=== PATIENT | male | born 1945 | race Asian ===

== ENCOUNTER 2018-01-21 18:50 | Inpatient (IN) | payer OTHER, MEDICAID ==
--- NOTE | 2018-01-21 19:08 | ED Physician Chart ---
ED Chief Complaint/HPI - Patient Information Date Seen:: 01/21/18 Time Seen:: 18:55 Chief Complaint:: Weakness History of Present Illness:: onset x 3 days of weakness and dizziness/vertigo; no report of trauma, H/As, S/T , neck pain, cough, C/P, SOB, Abd. Pain, A/N/V/D/C, fever, chills, or urinary s/ s Allergies:: Allergies Allergy/AdvReac Type Severity Reaction Status Date / Time acetaminophen Allergy Verified 01/21/18 18:57 [From Tylenol-Codeine #3] codeine Allergy Verified 01/21/18 18:57 [From Tylenol-Codeine #3] Vitals:: Vital Signs - 8 hr 01/21/18 18:57 Temp 97.1 F HR 106 RR 16 BP 147/82 O2 Sat % 97 Historian:: Patient, EMS Review:: Nurse's Note Reviewed, Old Chart Reviewed, EMS run form Reviewed ED Review of Systems - Review of Systems General/Constitutional: No fever, No chills, No weight loss, Weakness, No diaphoresis, No edema, No loss of appetite Skin: No skin lesions, No rash, No bruising Head: No headache, No light-headedness Eyes: No loss of vision, No pain, No diplopia ENT: No earache, No nasal drainage, No sore throat, No tinnitus Neck: No neck pain, No swelling, No thyromegaly, No stiffness, No mass noted Cardio Vascular: No chest pain, No palpitations, No PND, No orthopnea, No edema Pulmonary: No SOB, No cough, No sputum, No wheezing GI: No nausea, No vomiting, No diarrhea, No pain, No melena, No hematochezia, No constipation, No hematemesis G/U: No dysuria, No frequency, No hematuria, No nacturia Musculoskeletal: No bone or joint pain, No back pain, No muscle pain Endocrine: No polyuria, No polydipsia Psychiatric: No prior psych history, No depression, No anxiety, No suicidal ideation, No homicidal ideation, No auditory hallucination, No visual hallucination Hematopoietic: No bruising, No lymphadenopathy Allergic/Immuno: No urticaria, No angioedema Neurological: No syncope, No focal symptoms, Weakness, No paresthesia, No headache, No seizure, Dizziness, No confusion, Vertigo ED Past Medical History - Past Medical History Obtainable: Yes Past Medical History: HTN, DM, Dyslipidemia Family History: Diabetes Melitus, HTN Social History: Non Smoker, No Alcohol, No Drug Use, Single, Care Facility Surgical History: None Psychiatricy History: None Medication: Reviewed Family Medical History - Family Member Mother History Unknown: Yes ED Physical Exam - Physical Examination General/Constitutional: Awake, Well-developed, well-nourished, Alert, No distress, GCS 15, Non-toxic appearing, Ambulatory Head: Atraumatic Eyes: Lids, conjuctiva normal, PERRL, EOMI Skin: Nl inspection, No rash, No skin lesions, No ecchymosis, Well hydrated, No lymphadenopathy ENMT: External ears, nose nl, TM canals nl, Nasal exam nl, Lips, teeth, gums nl , Oropharynx nl, Tonsils nl Neck: Nontender, Full ROM w/o pain, No JVD, No nuchal rigidity, No bruit, No mass, No stridor Respiratory: Nl effort/Exclusion, Clear to Auscultation, No Wheeze/Rhonchi/Rales Cardio Vascular: RRR, No murmur, gallop, rubs, NL S1 S2, Carotid/Femoral/Distal pulses equal bilaterally GI: No tenderness/rebounding/guarding, No organomegaly, No hernia, Normal BS's, Nondistended, No mass/bruits, No McBurney tenderness : No CVA tenderness Extremities: No tenderness or effusion, Full ROM, normal strength in all extremities, No edema, Normal digits & nails Neuro/Psych: Alert/oriented, DTR's symmetric, Normal sensory exam, Normal motor strength, Judgement/insight normal, Mood normal, Normal gait, No focal deficits Misc: Normal back, No paraspinal tenderness ED Labs/Radiology/EKG Results - Lab Results Comments:: Glucose: 304 - Radiology Results Comments:: NAD - EKG Interpretations EKG Time:: 19:20 Rate & Rhythm: 103; ST Comments:: non=specific st-t changes ED Septic Shock - . Is Septic Shock (SBP<90, OR Lactate>4 mmol\L) present?: No - <6hrs of presentation: Vital Signs: Vital Signs - 8 hr 01/21/18 18:57 Temp 97.1 F HR 106 RR 16 BP 147/82 O2 Sat % 97 ED Reassessment (Disposition) - Reassessment Reassessment Condition:: Improved - Diagnosis Diagnosis:: Vertigo; Weakness; Dizziness; TIA; Cardiac Arrythmias; Hyperglycemia; HTN; DM; Tachycardia; Dehydration - Aftercare/Follow up Instructions Aftercare/Follow-Up Instructions:: Counseled pt regarding lab results/diagnosis & need follow up, Counseled pt & family regarding lab results/diagnosis & need follow up - Patient Disposition Discharge/Transfer:: Acute Care w/in this hosp Accepting Physician:: Dr. Washington Time Called:: 1944 Time Responded:: 19:45 Admitted to:: Telemetry Spoke to:: Dr. Washington Admitting Medical Physician:: Dr. Washington Condition at Disposition:: Stable, Improved
[2018-01-21 19:24] LABS: % BASOPHILS 0.1 % (0.0-2.0); % EOSINOPHILS 0.8 % (0.0-5.0); % LYMPHOCYTES 9.6 % (20.0-50.0); % MONOCYTES 5.6 % (2.0-10.0); % NEUTROPHILS 83.9 % (40.0-80.0); EOSINOPHILE ABSOLUTE 0.1 Th/cmm (0.1-0.4); HEMATOCRIT 37.6 % (41.0-60); HEMOGLOBIN 12.7 gm/dL (12-16); LYMPHOCYTE ABSOLUTE 0.9 Th/cmm (1.5-3.0); MEAN CELL VOLUME 82.3 fl (80-99); MEAN CORPUSCULAR HEMOGLOBIN 27.9 pg (27.0-31.0); MEAN CORPUSCULAR HGB CONC 33.9 pg (28.0-36.0); MEAN PLATELET VOLUME 8.5 fl; MONOCYTE ABSOLUTE 0.5 Th/cmm (0.3-1.0); NEUTROPHILE ABSOLUTE 7.4 Th/cmm (1.8-8.0); PLATELET COUNT 183 Th/cmm (150-400); RED BLOOD COUNT 4.56 Mil/cmm (3.80-5.80); RED CELL DISTRIBUTION WIDTH 12.8 % (11.5-20.0); WHITE BLOOD COUNT 8.9 Th/cmm (4.8-10.8)
[2018-01-21 19:39] LABS: ALB/GLOB RATIO 1.2 (1.0-1.8); ALBUMIN 3.1 gm/dL (4.2-5.5); ALKALINE PHOSPHATASE 69 U/L (34-104); ANION GAP 11.4 (7.0-16.0); BILIRUBIN,TOTAL 0.2 mg/dL (0.3-1.0); BUN - UREA NITROGEN 22 mg/dL (7-25); CALCIUM SERUM 9.2 mg/dL (8.6-10.3); CARBON DIOXIDE 28.7 mEq/L (21.0-31.0); CHLORIDE 103 mEq/L (98-107); CHOLESTEROL 286 mg/dL (<200); CREATININE - SERUM 1.2 mg/dL (0.7-1.3); CREATININE KINASE 65 U/L (30-223); GLUCOSE 304 mg/dL (70-105); HDL -HIGH DENSITY LIPOPROTEIN 42 mg/dL (23-92); POTASSIUM SERUM 4.1 mEq/L (3.5-5.1); SGOT 16 U/L (13-39); SGPT/ALT 19 U/L (7-52); SODIUM SERUM 139 mEq/L (136-145); TOTAL PROTEIN,SERUM 5.8 gm/dL (6.0-8.3); TRIGLYCERIDES 402 mg/dL (<150)
[2018-01-21 19:45] LABS: INR 0.95 (0.5-1.4); PROTHROMBIN TIME (TEST) 9.9 SECONDS (9.5-11.5)
[2018-01-21] MEDS ORDERED: Ipratropium Neb 0.5 mg/2.5 mL UD HHN PRN (23:17)
[2018-01-21] MEDS ORDERED: guaiFENesin 200 MG/10 ML UDC PO PRN (23:17)
[2018-01-21] MEDS ORDERED: Albuterol Nebulizer 2.5mg/3mL HHN PRN (23:17)
[2018-01-22] MEDS: Sodium Chloride 0.9% 1,000 ML IV SCH (00:19)
[2018-01-22 07:05] LABS: % BASOPHILS 0.4 % (0.0-2.0); % EOSINOPHILS 2.4 % (0.0-5.0); % LYMPHOCYTES 18.3 % (20.0-50.0); % MONOCYTES 9.2 % (2.0-10.0); % NEUTROPHILS 69.7 % (40.0-80.0); EOSINOPHILE ABSOLUTE 0.2 Th/cmm (0.1-0.4); HEMATOCRIT 39.5 % (41.0-60); HEMOGLOBIN 13.1 gm/dL (12-16); LYMPHOCYTE ABSOLUTE 1.5 Th/cmm (1.5-3.0); MEAN CELL VOLUME 83.2 fl (80-99); MEAN CORPUSCULAR HEMOGLOBIN 27.6 pg (27.0-31.0); MEAN CORPUSCULAR HGB CONC 33.2 pg (28.0-36.0); MEAN PLATELET VOLUME 9.1 fl; MONOCYTE ABSOLUTE 0.7 Th/cmm (0.3-1.0); NEUTROPHILE ABSOLUTE 5.7 Th/cmm (1.8-8.0); PLATELET COUNT 182 Th/cmm (150-400); RED BLOOD COUNT 4.75 Mil/cmm (3.80-5.80); RED CELL DISTRIBUTION WIDTH 12.9 % (11.5-20.0); WHITE BLOOD COUNT 8.1 Th/cmm (4.8-10.8)
[2018-01-22 07:26] LABS: ALB/GLOB RATIO 1.1 (1.0-1.8); ALKALINE PHOSPHATASE 49 U/L (34-104); ANION GAP 8.9 (7.0-16.0); BILIRUBIN,TOTAL 0.3 mg/dL (0.3-1.0); BUN - UREA NITROGEN 15 mg/dL (7-25); CALCIUM SERUM 8.8 mg/dL (8.6-10.3); CARBON DIOXIDE 31.4 mEq/L (21.0-31.0); CHLORIDE 104 mEq/L (98-107); CREATININE - SERUM 0.9 mg/dL (0.7-1.3); POTASSIUM SERUM 3.3 mEq/L (3.5-5.1); SGOT 15 U/L (13-39); SGPT/ALT 18 U/L (7-52); SODIUM SERUM 141 mEq/L (136-145); TOTAL PROTEIN,SERUM 5.7 gm/dL (6.0-8.3)
[2018-01-22] MEDS ORDERED: INSULIN HUMAN REGULAR 100 UNITS/ML UNIT SUBQ SCH (07:30)
[2018-01-22 07:33] LABS: GLUCOSE 187 mg/dL (70-105)
[2018-01-22] MEDS ORDERED: Non-Formulary Item 1 EA (Multivitamin [Multivitamins] 1 CAP) PO SCH (09:00)
[2018-01-22] MEDS: Multivitamin Tab PO SCH (09:12)
--- NOTE | 2018-01-22 10:45 | Diagnostic Imaging Report ---
Portable chest x-ray History: Pain Allowing for portable technique the heart size is normal. No focal pulmonary parenchymal processes. No hilar or mediastinal abnormalities. Impression: No acute abnormalities.
--- NOTE | 2018-01-22 10:46 | Diagnostic Imaging Report ---
CT scan of the brain without intravenous contrast HISTORY: Stroke, CVA Total DLP equals 774 CTDI equals 41.6 Axial sections were obtained from the base of the skull to the vertex. There is prominence/enlargement of the ventricular system size. Associated enlargement of cerebral sulci and subarachnoid cisterns. Findings are consistent with changes of generalized cerebral atrophy. No acute parenchymal abnormalities. No acute cerebral hemorrhage. Hypodensity is seen within the supratentorial white matter regions without mass effect. The findings may be associated with chronic small vessel ischemic disease. No extra-axial masses or abnormal fluid collections. Atherosclerotic calcification seen in the region of the vertebral and basilar arteries at the base of the skull. IMPRESSION: 1. No acute abnormalities 2. Cerebral atrophy 3. Supratentorial white matter changes that may reflect chronic small vessel ischemic disease 4. Atherosclerotic vascular changes
[2018-01-22] MEDS: INSULIN ASPART, RECOMBINANT 100 UNITS/ML SUBQ SCH ×3 (12:43→21:22)
--- NOTE | 2018-01-22 12:54 | Internal Medicine Prog Note ---
Internal Medicine Subjective - Subjective Service Date: 01/22/18 ([facility] [id number]) Internal Medicine Objective - Results Result Diagrams: 01/22/18 06:10 01/22/18 06:10 Recent Labs: Laboratory Last Values WBC 8.1 Th/cmm (4.8-10.8) 01/22/18 06:10 RBC 4.75 Mil/cmm (3.80-5.80) 01/22/18 06:10 Hgb 13.1 gm/dL (12-16) 01/22/18 06:10 Hct 39.5 % (41.0-60) L 01/22/18 06:10 MCV 83.2 fl (80-99) 01/22/18 06:10 MCH 27.6 pg (27.0-31.0) 01/22/18 06:10 MCHC Differential 33.2 pg (28.0-36.0) 01/22/18 06:10 RDW 12.9 % (11.5-20.0) 01/22/18 06:10 Plt Count 182 Th/cmm (150-400) 01/22/18 06:10 MPV 9.1 fl 01/22/18 06:10 Neutrophils % 69.7 % (40.0-80.0) 01/22/18 06:10 Lymphocytes % 18.3 % (20.0-50.0) L 01/22/18 06:10 Monocytes % 9.2 % (2.0-10.0) 01/22/18 06:10 Eosinophils % 2.4 % (0.0-5.0) 01/22/18 06:10 Basophils % 0.4 % (0.0-2.0) 01/22/18 06:10 PT 9.9 SECONDS (9.5-11.5) 01/21/18 19:15 INR 0.95 (0.5-1.4) 01/21/18 19:15 Sodium 141 mEq/L (136-145) 01/22/18 06:10 Potassium 3.3 mEq/L (3.5-5.1) L 01/22/18 06:10 Chloride 104 mEq/L (98-107) 01/22/18 06:10 Carbon Dioxide 31.4 mEq/L (21.0-31.0) H 01/22/18 06:10 Anion Gap 8.9 (7.0-16.0) 01/22/18 06:10 BUN 15 mg/dL (7-25) 01/22/18 06:10 Creatinine 0.9 mg/dL (0.7-1.3) 01/22/18 06:10 Est GFR ( Amer) TNP 01/22/18 06:10 Est GFR (Non-Af Amer) TNP 01/22/18 06:10 BUN/Creatinine Ratio 16.7 01/22/18 06:10 Glucose 187 mg/dL (70-105) H D 01/22/18 06:10 POC Glucose 227 MG/DL (70 - 105) H 01/22/18 12:16 Calcium 8.8 mg/dL (8.6-10.3) 01/22/18 06:10 Magnesium 2.0 mg/dL (1.9-2.7) 01/22/18 06:10 Total Bilirubin 0.3 mg/dL (0.3-1.0) 01/22/18 06:10 AST 15 U/L (13-39) 01/22/18 06:10 ALT 18 U/L (7-52) 01/22/18 06:10 Alkaline Phosphatase 49 U/L (34-104) 01/22/18 06:10 Creatine Kinase 65 U/L (30-223) 01/21/18 19:15 Troponin I < 0.01 ng/mL (0.01-0.05) L 01/21/18 19:15 B-Natriuretic Peptide 49.1 pg/mL (5.0-100.0) 01/21/18 19:15 Total Protein 5.7 gm/dL (6.0-8.3) L 01/22/18 06:10 Albumin 3.0 gm/dL (4.2-5.5) L 01/22/18 06:10 Globulin 2.7 gm/dL 01/22/18 06:10 Albumin/Globulin Ratio 1.1 (1.0-1.8) 01/22/18 06:10 Triglycerides 402 mg/dL (<150) H 01/21/18 19:15 Cholesterol 286 mg/dL (<200) H 01/21/18 19:15 LDL Cholesterol Direct 207 mg/dL (75-193) H 01/21/18 19:15 HDL Cholesterol 42 mg/dL (23-92) 01/21/18 19:15 TSH 1.03 uIU/ml (0.34-5.60) 01/22/18 06:10 - Physical Exam Vitals and I&O: Vital Signs Temp 98.3 F 01/22/18 11:40 Pulse 76 01/22/18 11:40 Resp 18 01/22/18 11:59 BP 118/68 01/22/18 11:40 Pulse Ox 98 01/22/18 11:40 Intake & Output 01/21/18 01/22/18 01/22/18 18:59 06:59 18:59 Weight (lbs) 142 lb 150 lb Other: # Voids 3 # Bowel Movements 0 Weight Source Standing scale Bedscale Active Medications: Current Medications Albuterol Sulfate (Albuterol 2.5mg/3ml Neb Ud) 2.5 mg HHN Q2HR PRN PRN Reason: Shortness of Breath or Wheeze Stop: 03/22/18 23:16 Amlodipine Besylate (Norvasc) 10 mg PO DAILY [facility] Stop: 03/23/18 08:59 Last Admin: 01/22/18 09:12 Dose: 10 mg Divalproex Sodium (Depakote Dr) 250 mg PO QAM [facility]; Protocol Stop: 03/23/18 08:59 Last Admin: 01/22/18 09:08 Dose: 250 mg Divalproex Sodium (Depakote Dr) 500 mg PO QPM [facility]; Protocol Stop: 03/23/18 16:59 Docusate Sodium (Colace) 100 mg PO BID [facility] Stop: 03/23/18 08:59 Last Admin: 01/22/18 09:08 Dose: 100 mg Glimepiride (Amaryl) 2 mg PO DAILY [facility] Stop: 03/23/18 08:59 Last Admin: 01/22/18 09:08 Dose: 2 mg Guaifenesin (Robitussin) 100 mg PO Q4H PRN PRN Reason: Cough or Congestion Stop: 03/22/18 23:16 Sodium Chloride (Nacl 0.9%) 1,000 mls @ 60 mls/hr IV .[id number] [facility] Stop: 03/22/18 23:29 Last Admin: 01/22/18 00:19 Dose: 60 mls/hr Insulin Aspart (Novolog) 0 units SUBQ ACHS [facility]; Protocol Stop: 03/23/18 07:29 Last Admin: 01/22/18 12:43 Dose: 4 units Ipratropium [place] (Atrovent Neb 0.5mg/2.5ml) 0.5 mg HHN Q2HR PRN PRN Reason: Shortness of Breath or Wheeze Stop: 03/22/18 23:16 Metformin HCl (Glucophage) 500 mg PO BID [facility] Stop: 03/23/18 08:59 Last Admin: 01/22/18 09:08 Dose: 500 mg Metoprolol Tartrate (Lopressor) 50 mg PO BID [facility] Stop: 03/23/18 08:59 Last Admin: 01/22/18 09:12 Dose: 50 mg Multivitamins/Vitamin C (Theragran) 1 tab PO DAILY [facility] Stop: 03/23/18 08:59 Last Admin: 01/22/18 09:12 Dose: 1 tab Ondansetron HCl (Zofran) 4 mg IV Q8H PRN PRN Reason: Nausea / Vomiting Stop: 03/22/18 23:16
--- NOTE | 2018-01-22 14:47 | History & Physical ---
ADMIT DATE: 01/22/2018 DICTATED FOR: Dr. Jose Maria Washington CHIEF COMPLAINT: Generalized weakness. HISTORY OF PRESENT ILLNESS: This is a 72-year-old male who is a skilled nursing resident, admitted to the med-surg unit due to 3-day history of weakness and dizziness. There is no reports of any fevers. For further management, the patient is now admitted to the med/surg unit. PAST MEDICAL HISTORY: Hypertension, diabetes, dyslipidemia. FAMILY HISTORY: Noncontributory. SOCIAL HISTORY: The patient is a skilled nursing resident, requiring 24-hour nursing care. PAST SURGICAL HISTORY: None per the patient. MEDICATIONS: Please see medication reconciliation sheet. REVIEW OF SYSTEMS: GENERAL: Denies any fever and chills. CARDIOVASCULAR: Denies chest pain. RESPIRATORY: Denies shortness of breath. GASTROINTESTINAL: Denies nausea, vomiting, abdominal pain. GENITOURINARY: Denies increased frequency, dysuria. NEUROLOGIC: No headaches, seizures or syncope. All other systems are reviewed and negative. PHYSICAL EXAMINATION: GENERAL: Elderly male, awake, alert, in no apparent distress. VITAL SIGNS: Temperature 98.3, heart rate 76, blood pressure 118/68, respiration 18, O2 98%. HEENT: Head normocephalic, atraumatic. NECK: Supple. No mass. LUNGS: Clear bilaterally. HEART: Regular rhythm. ABDOMEN: Soft, nontender. LABORATORY DATA: WBC 8.1, H and H 13.1 and 39.5, platelet of 182. Sodium 141, potassium 3.3, chloride 104, BUN 15, creatinine 0.9, glucose of 187. Albumin of 3.0. DIAGNOSTIC DATA: The patient had a CT of the head done, impression is no acute abnormality, cerebral atrophy, supratentorial white matter changes that may reflect chronic small vessel ischemic changes, atherosclerotic vascular changes. The patient also had a chest x-ray done, impression is no acute abnormalities. ASSESSMENT: Generalized weakness, mild protein-calorie malnutrition, hypertension, diabetes and dyslipidemia. PLAN: We will get the patient on IV fluids for hydration. Physical therapy evaluation. Monitor the patient's glucose, Accu-Chek a.c. and bedtime. We will also get psych on the case as well. We will continue to follow this patient. JOB# [id number]
[2018-01-22 17:48] LABS: A1C % 6.9 % (4.0-6.0)
[2018-01-22] MEDS ORDERED: Potassium Chloride 20 mEq ER Tab PO ONE (19:11)
--- NOTE | 2018-01-23 00:10 | Consultation ---
DATE OF CONSULTATION: 01/22/2018 PSYCHIATRIC CONSULTATION The patient was seen, chart reviewed, discussed with staff. HISTORY OF PRESENT ILLNESS: The patient is a 72-year-old male with multiple medical problems, was admitted to the hospital with generalized weakness and dizziness for the past 3 days, currently being hydrated. The patient has a history of encephalopathy and dementia. The patient was superficial throughout the interview. He was laughing inappropriately and have some episodes where he is talking to himself. PAST PSYCHIATRIC HISTORY: Dementia versus possible MR. PAST MEDICAL HISTORY: Seizure disorder, diabetes. PSYCHOSOCIAL HISTORY: The patient resides at [facility] and requires complete care. MENTAL STATUS EXAMINATION: The patient is in bed, made fair eye contact. Speech is minimal, short sentences, inappropriate laughter, responding to internal stimuli. Oriented to person, not oriented to time or place. Insight is poor. Judgment is limited. ASSESSMENT: At this time, would recommend continuation of medical supportive measures. Use a small dose of Ativan 0.5 mg q. 6 hours p.r.n. anxiety. Monitor for increased agitation or paranoia or any changes in his mental status. We will follow the patient closely. Thank you for the consultation . JOB# [id number]
--- NOTE | 2018-01-23 00:32 | Consultation ---
DATE OF CONSULTATION: 01/22/2018 The patient is currently in the hospital. HISTORY OF PRESENT ILLNESS: He is a 72-year-old [place] born male, 3 days onset of weakness, dizziness. The patient only AO to name. He does not know where he is. He does not know why he is here. He is generally confused, disoriented. The patient states he feels "depressed," sad. Sleep "okay." The patient states that he speaks Yi as well as Serbian. PAST PSYCHIATRIC HISTORY: Rule out dementia. FAMILY HISTORY: Noncontributory. SOCIAL HISTORY: The patient is coming from [facility] referred by Dr. Valles. He states that he is . 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 Unclear drugs, alcohol, or tobacco. MENTAL STATUS EXAMINATION: Stated age. Fair eye contact. Mood: "Sad." Affect constricted. Thought processes were disoriented. No SI, no HI. No overt psychotic symptoms. Insight and judgment seemed diminished. PROVISIONAL DIAGNOSIS: Rule out dementia, also mood unspecified, and anxiety, unspecified. MEDICAL: Please see full H and P. RECOMMENDATIONS AND PLAN: We will attempt to increase collateral. The patient quite confused on exam. We will continue to monitor, continue Depakote. JOB# [id number]
[2018-01-23 06:17] LABS: ANION GAP 9.8 (7.0-16.0); BUN - UREA NITROGEN 11 mg/dL (7-25); CALCIUM SERUM 8.5 mg/dL (8.6-10.3); CARBON DIOXIDE 27.7 mEq/L (21.0-31.0); CHLORIDE 105 mEq/L (98-107); CREATININE - SERUM 0.8 mg/dL (0.7-1.3); POTASSIUM SERUM 3.5 mEq/L (3.5-5.1); SODIUM SERUM 139 mEq/L (136-145)
[2018-01-23 06:23] LABS: % BASOPHILS 0.8 % (0.0-2.0); % EOSINOPHILS 2.7 % (0.0-5.0); % LYMPHOCYTES 18.3 % (20.0-50.0); % MONOCYTES 7.6 % (2.0-10.0); % NEUTROPHILS 70.6 % (40.0-80.0); BASOPHILE ABSOLUTE 0.1 Th/cumm (0-0.2); EOSINOPHILE ABSOLUTE 0.2 Th/cmm (0.1-0.4); HEMATOCRIT 40.4 % (41.0-60); HEMOGLOBIN 13.6 gm/dL (12-16); LYMPHOCYTE ABSOLUTE 1.6 Th/cmm (1.5-3.0); MEAN CELL VOLUME 82.6 fl (80-99); MEAN CORPUSCULAR HEMOGLOBIN 27.8 pg (27.0-31.0); MEAN CORPUSCULAR HGB CONC 33.6 pg (28.0-36.0); MEAN PLATELET VOLUME 9.1 fl; MONOCYTE ABSOLUTE 0.7 Th/cmm (0.3-1.0); PLATELET COUNT 201 Th/cmm (150-400); RED BLOOD COUNT 4.89 Mil/cmm (3.80-5.80); RED CELL DISTRIBUTION WIDTH 12.6 % (11.5-20.0); WHITE BLOOD COUNT 8.6 Th/cmm (4.8-10.8)
[2018-01-23 07:56] LABS: GLUCOSE 97 mg/dL (70-105)
[2018-01-23] MEDS: Multivitamin Tab PO SCH (09:17)
[2018-01-23] MEDS: INSULIN ASPART, RECOMBINANT 100 UNITS/ML SUBQ SCH ×3 (09:19→17:42)
--- NOTE | 2018-01-23 12:43 | Internal Medicine Prog Note ---
Internal Medicine Subjective - Subjective Service Date: 01/23/18 Patient seen and examined:: with staff Patient is:: awake, verbal Per staff patient has:: tolerating meds Internal Medicine Objective - Results Result Diagrams: 01/23/18 05:35 01/23/18 05:35 Recent Labs: Laboratory Last Values WBC 8.6 Th/cmm (4.8-10.8) 01/23/18 05:35 RBC 4.89 Mil/cmm (3.80-5.80) 01/23/18 05:35 Hgb 13.6 gm/dL (12-16) 01/23/18 05:35 Hct 40.4 % (41.0-60) L 01/23/18 05:35 MCV 82.6 fl (80-99) 01/23/18 05:35 MCH 27.8 pg (27.0-31.0) 01/23/18 05:35 MCHC Differential 33.6 pg (28.0-36.0) 01/23/18 05:35 RDW 12.6 % (11.5-20.0) 01/23/18 05:35 Plt Count 201 Th/cmm (150-400) 01/23/18 05:35 MPV 9.1 fl 01/23/18 05:35 Neutrophils % 70.6 % (40.0-80.0) 01/23/18 05:35 Lymphocytes % 18.3 % (20.0-50.0) L 01/23/18 05:35 Monocytes % 7.6 % (2.0-10.0) 01/23/18 05:35 Eosinophils % 2.7 % (0.0-5.0) 01/23/18 05:35 Basophils % 0.8 % (0.0-2.0) 01/23/18 05:35 PT 9.9 SECONDS (9.5-11.5) 01/21/18 19:15 INR 0.95 (0.5-1.4) 01/21/18 19:15 Sodium 139 mEq/L (136-145) 01/23/18 05:35 Potassium 3.5 mEq/L (3.5-5.1) 01/23/18 05:35 Chloride 105 mEq/L (98-107) 01/23/18 05:35 Carbon Dioxide 27.7 mEq/L (21.0-31.0) 01/23/18 05:35 Anion Gap 9.8 (7.0-16.0) 01/23/18 05:35 BUN 11 mg/dL (7-25) 01/23/18 05:35 Creatinine 0.8 mg/dL (0.7-1.3) 01/23/18 05:35 Est GFR ( Amer) TNP 01/23/18 05:35 Est GFR (Non-Af Amer) TNP 01/23/18 05:35 BUN/Creatinine Ratio 13.8 01/23/18 05:35 Glucose 97 mg/dL (70-105) D 01/23/18 05:35 POC Glucose 260 MG/DL (70 - 105) H 01/23/18 11:39 Hemoglobin A1c % 6.9 % (4.0-6.0) H 01/21/18 19:15 Calcium 8.5 mg/dL (8.6-10.3) L 01/23/18 05:35 Magnesium 2.0 mg/dL (1.9-2.7) 01/22/18 06:10 Total Bilirubin 0.3 mg/dL (0.3-1.0) 01/22/18 06:10 AST 15 U/L (13-39) 01/22/18 06:10 ALT 18 U/L (7-52) 01/22/18 06:10 Alkaline Phosphatase 49 U/L (34-104) 01/22/18 06:10 Creatine Kinase 65 U/L (30-223) 01/21/18 19:15 Troponin I < 0.01 ng/mL (0.01-0.05) L 01/21/18 19:15 B-Natriuretic Peptide 49.1 pg/mL (5.0-100.0) 01/21/18 19:15 Total Protein 5.7 gm/dL (6.0-8.3) L 01/22/18 06:10 Albumin 3.0 gm/dL (4.2-5.5) L 01/22/18 06:10 Globulin 2.7 gm/dL 01/22/18 06:10 Albumin/Globulin Ratio 1.1 (1.0-1.8) 01/22/18 06:10 Triglycerides 402 mg/dL (<150) H 01/21/18 19:15 Cholesterol 286 mg/dL (<200) H 01/21/18 19:15 LDL Cholesterol Direct 207 mg/dL (75-193) H 01/21/18 19:15 HDL Cholesterol 42 mg/dL (23-92) 01/21/18 19:15 TSH 1.03 uIU/ml (0.34-5.60) 01/22/18 06:10 - Physical Exam Vitals and I&O: Vital Signs Temp 98.1 F 01/23/18 12:24 Pulse 70 01/23/18 12:24 Resp 19 01/23/18 12:24 BP 150/78 01/23/18 12:24 Pulse Ox 99 01/23/18 12:24 Intake & Output 01/22/18 01/23/18 01/23/18 18:59 06:59 18:59 Intake Total 1450 Balance 1450 Weight (lbs) 150 lb 150 lb Intake: Intake, IV Amount 1000 Sodium Chloride 0.9% 1, 1000 000 ml @ 60 mls/hr IV . [id number] [facility] Rx#:[id number] Oral 450 Other: # Voids 4 # Bowel Movements 0 Stool Characteristics Soft Weight Source Bedscale Bedscale Active Medications: Current Medications Albuterol Sulfate (Albuterol 2.5mg/3ml Neb Ud) 2.5 mg HHN Q2HR PRN PRN Reason: Shortness of Breath or Wheeze Stop: 03/22/18 23:16 Amlodipine Besylate (Norvasc) 10 mg PO DAILY [facility] Stop: 03/23/18 08:59 Last Admin: 01/23/18 09:18 Dose: 10 mg Divalproex Sodium (Depakote Dr) 250 mg PO QAM [facility]; Protocol Stop: 03/23/18 08:59 Last Admin: 01/23/18 09:18 Dose: 250 mg Divalproex Sodium (Depakote Dr) 500 mg PO QPM [facility]; Protocol Stop: 03/23/18 16:59 Last Admin: 01/22/18 17:31 Dose: 500 mg Docusate Sodium (Colace) 100 mg PO BID [facility] Stop: 03/23/18 08:59 Last Admin: 01/23/18 09:17 Dose: 100 mg Glimepiride (Amaryl) 2 mg PO DAILY [facility] Stop: 03/23/18 08:59 Last Admin: 01/23/18 09:19 Dose: Not Given Guaifenesin (Robitussin) 100 mg PO Q4H PRN PRN Reason: Cough or Congestion Stop: 03/22/18 23:16 Sodium Chloride (Nacl 0.9%) 1,000 mls @ 60 mls/hr IV .[id number] [facility] Stop: 03/22/18 23:29 Last Infusion: 01/22/18 17:00 Dose: Infused Insulin Aspart (Novolog) 0 units SUBQ ACHS [facility]; Protocol Stop: 03/23/18 07:29 Last Admin: 01/23/18 12:34 Dose: 6 units Ipratropium [place] (Atrovent Neb 0.5mg/2.5ml) 0.5 mg HHN Q2HR PRN PRN Reason: Shortness of Breath or Wheeze Stop: 03/22/18 23:16 Lorazepam (Ativan) 0.5 mg IVP Q6H PRN; Protocol PRN Reason: Anxiety Stop: 03/23/18 19:29 Metformin HCl (Glucophage) 500 mg PO BID [facility] Stop: 03/23/18 08:59 Last Admin: 01/23/18 09:19 Dose: Not Given Metoprolol Tartrate (Lopressor) 50 mg PO BID [facility] Stop: 03/23/18 08:59 Last Admin: 01/23/18 09:17 Dose: 50 mg Multivitamins/Vitamin C (Theragran) 1 tab PO DAILY [facility] Stop: 03/23/18 08:59 Last Admin: 01/23/18 09:17 Dose: 1 tab Ondansetron HCl (Zofran) 4 mg IV Q8H PRN PRN Reason: Nausea / Vomiting Stop: 03/22/18 23:16 General: weak, alert HEENT: NC/AT, PERRLA Neck: Supple Lungs: CTAB Cardiovascular: RRR, Normal S1, Normal S2, without murmur Abdomen: soft, non-tender, non-distended, positive bowel sound Internal Medicine Assmt/Plan - Assessment Assessment: generalized weakness mild protein calorie malnutrition htn dm dyslipidemia - Plan Plan: fall precautions follow up labs [place] to [facility] in am Nutritional Asmnt/Malnutr-PDOC - Dietary Evaluation Malnutrition Findings (Please click <Entered> for more info): Nutritional Asmnt/Malnutrition Start: 01/22/18 16: 55 Text: Status: Complete Freq: Protocol: Document 01/22/18 17:07 LCHOLLY (Rec: 01/22/18 17:30 JOSEPHHOLLY [email or web address]) Nutritional Asmnt/Malnutrition Patient General Information Nutritional Screening High Risk Consult Diagnosis generalized weakness Pertinent Medical Hx/Surgical Hx HTN, DM, hyslipidemia Subjective Information Pt seen sleeping in bed at time of visit. Consult received for BS 304 at admission. Per EMR, no PO intake indicated as of now. Current Diet Order/ Nutrition Support [facility] [place] Pertinent Medications colace, novolog, glucophage, theragran, nacl 0.9% Pertinent Labs 01/22 K 3.3, Glucose 187 ( trending down), POC 162-227 01/21 glucose 304 Nutritional Hx/Data Height 5 ft 1 in Height (Calculated Centimeters) 154.9 Current Weight (lbs) 150 lb Weight (Calculated Kilograms) 68.0 Weight (Calculated Grams) 40309.9 [place] Body Weight 112 Body Mass Index (BMI) 28.3 Weight Status Overweight GI Symptoms GI Symptoms None Last BM none Difficult in: None Skin Integrity/Comment: 2+ pitting edema to R/L foot skin intact Estimated Nutritional Goals Calories/Kcals/Kg 25-30 Kcals Calculated 0821-3120 Protein g/k-1.2 Protein Calculated 56-67 Fluid: ml 1400-1680ml (1ml/kcal) Nutritional Problem 1. Problem Problem altered nutrition related labs Etiology hx of DM Signs/Symptoms: glucose 187-304 POC 162-227 Malnutrition Alert Is there a minimum of two criteria No selected? Query Text:Check all the applicable criteria. A minimum of two criteria are recommended for diagnosis of either severe or non-severe malnutrition. Malnutrition Related to Morbid Obesity Malnutrition related to morbid obesity No Intervention/Recommendation Comments 1. Continue with [facility] [place] diet as ordered. Will atampt to provide nutrition education when pt availeble. MD to adjust insulin for optimal glycemic control. 2. Monitor PO intake, wt, labs and skin integrity 3. F/U as high risk in 2-3 days, 01/24-01/25 Expected Outcomes/Goals Expected Outcomes/Goals 1. PO intake to meet at least 75% of nutritional needs. 2. Wt stability, skin to remain intact, labs to approach WNL.
[2018-01-23] MEDS: Sodium Chloride 0.9% 1,000 ML IV SCH (16:46)
--- NOTE | 2018-01-23 18:09 | Consultation ---
DATE OF CONSULTATION: 01/23/2018 HISTORY OF PRESENT ILLNESS: A 72-year-old male onset of weakness and dizziness. On [id number], AO to name. When I asked him where he is, he states "I don't know." When I asked him the year, he states, "I don't know." When I asked him the month, he states, "I don't know. Yesterday, he told me he felt depressed and sad. Today, he is denying sadness, states he feels "okay." Sleep "okay." Appears comfortable on exam. Staff noting he has been poorly oriented, mostly to name, able to verbalize some of his needs. Staff is trying to contact family. PAST PSYCHIATRIC HISTORY: Noted. SOCIAL HISTORY: Noted. [place] born male. MEDICATIONS: Noted. MENTAL STATUS EXAMINATION: Stated age. Fair eye contact. Speech within normal limits. Mood "okay." Affect constricted. Thought processes were confused, disoriented. No SI, no HI. No overt psychotic symptoms. Insight and judgment somewhat diminished. PROVISIONAL DIAGNOSES: Likely demented, also mood, unspecified, and anxiety, unspecified. MEDICAL: Please see full H and P. RECOMMENDATIONS AND PLAN: We will continue to monitor. The patient is fairly stable from a psychiatric perspective. No behaviors noted. [facility]# [id number]
== END 2018-01-23 20:22 | DRG 641 ==
LOC: ER 18:50 → MSI 21:38
PROVIDERS: ADMIT Internal Medicine; ATTEND Internal Medicine
DX: E86.0 Dehydration (principal); E44.1 Mild protein-calorie malnutrition; Z68.28 Body mass index [BMI] 28.0-28.9, adult; I10 Essential (primary) hypertension; E78.5 Hyperlipidemia, unspecified; R53.81 Other malaise; F39 Unspecified mood [affective] disorder; F41.9 Anxiety disorder, unspecified; E11.65 Type 2 diabetes mellitus with hyperglycemia; R42 Dizziness and giddiness; R00.0 Tachycardia, unspecified; G40.909 Epilepsy, unspecified, not intractable, without status epilepticus; Z88.5 Allergy status to narcotic agent; Z88.6 Allergy status to analgesic agent; Z82.49 Family history of ischemic heart disease and other diseases of the circulatory system; Z83.3 Family history of diabetes mellitus
CPT/HCPCS: 36415-UA; 70450-TC; 71045-TC; 80048-TC; 80053-TC; 80061-TC; 82550-TC; 82948-90; 83036-90; 83735-TC; 83880-TC; 84443-TC; 84484-TC; 85025-TC; 85610-TC; 93005; 94760; J1815; J2060; J7030; X3904; Z7610